=== PATIENT | male | born 1960 | race Caucasian/White ===

== ENCOUNTER 2023-10-12 09:30 | Outpatient (OUT) | payer OTHER, SELFPAY ==
[2023-10-12 10:22] LABS: Basophils Absolute Auto 0.1 10^3/uL (0.0-0.1); Basophils Percent Auto 0.6 % (0.2-2.0); Eosinophils Absolute Auto 0.4 10^3/uL (0.0-0.7); Hematocrit 36.3 % (42.0-54.0); Hemoglobin 11.9 g/dL (14.0-18.0); Immature Granulocytes Abs Auto 0.08 10^3/uL (0.00-0.03); Immature Granulocytes Pct Auto 0.8 % (0.0-0.5); Lymphocytes Percent Auto 19.8 % (20.5-60.0); Mean Corpuscular HGB Conc 32.8 g/dL (29.9-35.2); Mean Corpuscular Hemoglobin 31.7 pg (25.9-34.0); Mean Corpuscular Volume 96.8 fL (80.0-94.0); Mean Platelet Volume 9.5 fL (9.5-13.5); Monocytes Absolute Auto 0.9 10^3/uL (0.3-0.8); Monocytes Percent Auto 8.7 % (1.7-12.0); Neutrophils Absolute Auto 6.6 10^3/uL (1.4-6.5); Neutrophils Percent Auto 66.1 % (43.0-75.0); Platelet Count 250 10^3/uL (150-450); Red Blood Count 3.75 10^6/uL (4.70-6.10); Red Cell Distribution Width 12.4 % (11.0-15.0); White Blood Count 9.9 10^3/uL (4.0-11.0)
[2023-10-12 10:46] LABS: Percent Iron Saturation 32.9 %
[2023-10-12 10:55] LABS: Alanine Aminotransferase 19 U/L (16-63); Albumin Level 3.1 g/dL (3.4-5.0); Alkaline Phosphatase 106 U/L (46-116); Anion Gap 10.4; Aspartate Amino Transferase 11 U/L (15-37); BUN Creatinine Ratio 29.9; Bilirubin Total 0.4 mg/dL (0.2-1.0); Calcium 8.9 mg/dL (8.5-10.1); Carbon Dioxide 28.5 mmol/L (21.0-32.0); Chloride 106 mmol/L (98-107); Chol HDL Ratio 2.3; Cholesterol 112 mg/dL (<=200); Estimated GFR (African America >60 (>=60); Estimated GFR (Non-African Ame >60 (>=60); Glucose 133 mg/dL (74-106); HDL Cholesterol 49 mg/dL (40-60); LDL Cholesterol Calculated 41.8 mg/dL; Potassium 3.9 mmol/L (3.5-5.1); Sodium 141 mmol/L (136-145); Thyroid Stimulating Hormone 1.398 uIU/mL (0.358-3.740); Total Protein 6.1 g/dL (6.4-8.2); Triglycerides 106 mg/dL (<=150); VLDL CHOLESTEROL 21.2 mg/dL
[2023-10-12 11:19] LABS: Free T4 0.74 ng/dL (0.76-1.46)
[2023-10-13 04:07] LABS: Transferrin 241 mg/dL (177-329)
== END 2023-10-12 09:31 | disposition home or self-care (01) ==
LOC: LAB 09:34
PROVIDERS: PCP Family Medicine
DX: D64.9 Anemia, unspecified (principal)
CPT/HCPCS: 36415; 80053; 80061; 82607; 83540; 83550; 84439; 84443; 84466; 85025